=== PATIENT | female | born 1985 | race Caucasian/White ===

== ENCOUNTER → 2016-12-13 | Outpatient (CLI) | payer BC ==
--- NOTE | 2016-12-13 11:14 | REP ---
MR LUMBAR SPINE WITHOUT CONTRAST: HISTORY: Back pain. Decreased signal intensity on T2-weighted images is present in the L4-5 intervertebral disc. The disc is decreased in height. These findings are consistent with disc degeneration. There is no disc bulge or herniation at the L1-2 through L3-4 and L5-S1 levels. The nerves exit the neural foramina without compression. A diffuse disc bulge and small central disc extrusion are present at the L4-5 level. There is inferior migration of disc material. There is minimal compression of the thecal sac. The L4 nerves exit the neural foramina without compression. The conus medullaris is normal in appearance terminating at the level of the T12-L1 intervertebral disc. Normal signal intensity is present in the lumbar vertebral bodies. IMPRESSION: Diffuse disc bulge and small central disc extrusion at the L4-5 level with minimal thecal sac compression. Signed by Igor Solis MD 12/13/2016 11:16 A
== END ==
LOC: M RAD 08:47
PROVIDERS: ATTEND Physician Assistant
DX: M51.36 Other intervertebral disc degeneration, lumbar region (principal)